=== PATIENT | female | born 1975 | race American Indian/Alaskan Native ===

== ENCOUNTER 2017-07-17 11:00 | Outpatient (CLI) | payer BC | END 2017-07-17 11:01 | disposition home or self-care (01) | LOC: SLR 11:00 | PROVIDERS: ATTEND Specialist | DX: G47.33 Obstructive sleep apnea (adult) (pediatric) (principal) | CPT/HCPCS: 95811 ==

== ENCOUNTER 2017-10-31 06:17 | Day surgery (SDC) | payer BC ==
[2017-10-31] MEDS ORDERED: WATER FOR IRRIG STERILE IR ONE (07:38)
--- NOTE | 2017-10-31 07:42 | Anesthesia Day of Surgery ---
Anesthesia Day of Surgery - Day of Surgery Patient Examined: Yes Patient H&P Reviewed: Yes Patient is NPO: Yes
--- NOTE | 2017-10-31 07:42 | Anesthesia Consultation ---
Anesthesia Consult and Med Hx Date of service: 10/31/17 - Airway Anesthetic Teeth Evaluation: Good ROM Head & Neck: Adequate Mental/Hyoid Distance: Adequate Mallampati Class: Class II Intubation Access Assessment: Probably Good - Pulmonary Exam CTA: Yes - Cardiac Exam Cardiac Exam: RRR - Pre-Operative Health Status ASA Pre-Surgery Classification: ASA3 Proposed Anesthetic Plan: MAC - Pulmonary Hx Sleep Apnea: Yes (CPAP) - Cardiovascular System Hx Hypertension: Yes - Endocrine Hx Non-Insulin Dependent Diabetes: No (borderline) - Hematic Hx Anemia: Yes - Other Systems Hx Obesity: Yes
[2017-10-31] MEDS ORDERED: DIPRIVAN 10 MG/ML IV ONE ×2 (08:40)
[2017-10-31] MEDS ORDERED: HURRICAINE ONE 20% TOPICAL SPRAY MM ×2 (08:43→16:48)
--- NOTE | 2017-10-31 09:21 | Discharge Summary ---
Providers - Providers Attending physician: LIZZETH PERRY Primary care physician: DAVID STOCK Hospitalization Procedures: egd with biopsies Disposition: - TO HOME OR SELFCARE Core Measure Documentation - Palliative Care Palliative Care/ Comfort Measures: Not Applicable - Core Measures Any of the following diagnoses?: none Exam - Physical Exam Narrative exam: no change from previous Plan Additional Instructions: The office will be calling in prescriptions to you today/tomorrow. Take as directed. Follow up with: DAVID STOCK MD [Primary Care Provider] - 7 Days
--- NOTE | 2017-10-31 09:25 | Operative Report ---
Operative Report Operative Report: OPERATIVE REPORT - EGD DATE 10/31/17 SURGERY: Upper endoscopy. SURGEON: Dr. Young SHIPPING AND RECEIVING OPERATOR: Karuna Earl DO PRE OP DX: Morbid obesity, dyspepsia POST OP DX: Hiatal hernia, gastric polyp, esophagitis Grade B TYPE OF ANESTHESIA: MAC. ESTIMATED BLOOD LOSS: None. COMPLICATIONS: None. SPECIMENS REMOVED: None. FINDINGS: 1. Hiatal hernia 2. gastric polyp in body of stomach 3. Grade B esophagitis INDICATIONS:INDICATION FOR PROCEDURE: Patient is a 42-year-old female with a long history of morbid obesity. She is planned to have a weight loss procedure and is here for preoperative planning EGD. PROCEDURE DETAILS: After consent was reviewed, patient was taken back to the operating room where patient was placed in the left lateral decubitus position and a bite block was placed in the mouth. After a time-out was called, MAC anesthesia was initiated. I then passed the endoscope into her oropharynx, into her esophagus, visualized the entire esophagus. She was noted to have esophagitis grade B. A biopsy of the GE junction was performed. Hiatal hernia was noted. I then visualized the stomach and the first portion of the duodenum. A biopsy was taken of a polyp in the body of her stomach. I then retroflexed the scope in the stomach and visualized the hiatus and I could see a small hiatal hernia. I then desufflated the stomach and removed the endoscope. Patient tolerated procedure well and was transferred to recovery room in good and stable condition.
[2017-10-31 09:45] VITALS: BP 124/72
[2017-10-31] MEDS ORDERED: XYLOCAINE MPF 2% ONE (10:00)
--- NOTE | 2017-10-31 14:15 | Post Anesthesia Evaluation ---
- Post Anesthesia Evaluation Patient Participated: Yes Airway Patent: Yes Stable Respiratory Function: Yes Nausea/Vomiting: No Temp > 96.8F: Yes Pain Manageable: Yes Adequeate Hydration: Yes Anesthesia Complications: No Block Receding Appropriately: Not Applicable
== END 2017-10-31 06:18 | disposition home or self-care (01) ==
LOC: GIO 06:17
PROVIDERS: ATTEND Specialist
DX: K63.5 Polyp of colon (principal); K21.0 Gastro-esophageal reflux disease with esophagitis; E66.01 Morbid (severe) obesity due to excess calories; K44.9 Diaphragmatic hernia without obstruction or gangrene; I10 Essential (primary) hypertension; G47.33 Obstructive sleep apnea (adult) (pediatric); Z99.89 Dependence on other enabling machines and devices; Z68.45 Body mass index [BMI] 70 or greater, adult
CPT/HCPCS: 43239; 81025; 88305; 88342; J2704